=== PATIENT | female | born 1990 | race Caucasian/White ===

== ENCOUNTER 2023-12-19 10:39 | Emergency (ER) | payer OTHER, SELFPAY ==
[2023-12-19 10:47] VITALS: BP 152/90
--- NOTE | 2023-12-19 11:18 | ED.GENMED ---
History of Present Illness
General
Chief Complaint: Substance Abuse
Time Seen by Provider: 12/19/23 11:04
Travel History
Have you had any contact with someone who has COVID-19?: No
Do you have any symptoms of coronavirus? Fever > 100 degrees, chills, cough, shortness of breath, sore throat, loss of taste or smell, muscle aches, or headache?: No
History of Present Illness
History of Present Illness:
33-year-old female with history of polysubstance abuse, PTSD, and depression presents to the emergency department for eval ration of recurrent substance abuse. She states to be 'I feel like my head is clouded' and she has been using alcohol as well
as marijuana and Adderall habitually over the past several weeks. Her last use of these substances was yesterday. She does endorse depression but denies suicidal or homicidal ideation. She is hopeful to go inpatient for drug detox and rehab.
Review of Systems
Review of Systems
Allergies reviewed?: Yes
All Other Systems: ROS reviewed and negative except as documented in HPI and ROS
Phy Exam
Physical Exam
Physical Exam:
GEN: Well appearing, NAD, WDWN
HEENT: Oral mucosa moist, no scleral icterus
Cardiac: Regular rate
Lung: No respiratory distress, no tachypnea
MSK: No gross deformity or injuries
Skin: Good color, no pallor or jaundice, no rashes
Neuro: AO x3, moves all extremities freely
Psych: Tearful and anxious but overall cooperative, nonpsychotic, does not appear to be responding to internal stimuli
Course
Orders/Labs/Results
Orders:
Orders
12/19/23 11:17
Crisis Consult Urgent
Reason for Consult: depression, substance abuse
12/19/23 15:37
Test Result ONCE
12/19/23 16:13
Fentanyl, Urine Urgent
HCG, Urine Qualitative Screen Urgent
Date Specimen was Collected: 12/19/23
Time Specimen was Collected: 16:13
Urine Drug Abuse Screen Urgent
Date Specimen was Collected: 12/19/23
Time Specimen was Collected: 16:13
12/19/23 21:13
Asenapine Sublingual [Saphris] 5 mg SL NOW STA
12/20/23 11:29
Crisis Consult Routine
Reason for Consult: hallucinations
12/20/23 12:09
Add On- LAB Urgent
Tests Added?: urine drug screen
Abnormal Lab Results
12/19/23
16:13
Ur Amphetamines Screen Positive H
(Negative)
U Marijuana (THC) Screen Positive H
(Negative)
Vital Signs
Initial and Last Documented VS:
Initial Vital Signs
Temp Pulse Resp BP Pulse Ox
98.0 F 97 16 152/90 98
12/19/23 10:47 12/19/23 10:47 12/19/23 10:47 12/19/23 10:47 12/19/23 10:47
Last Documented Vital Signs
Temp Pulse Resp BP Pulse Ox
97.8 F 73 18 121/83 97
12/20/23 07:09 12/20/23 07:08 12/20/23 07:08 12/20/23 07:08 12/20/23 07:08
MDM/Problems Addressed
MDM/Problems Addressed:
[facility], she is more appropriate for substance abuse rehab and does not have any inpatient crisis needs at this time. Will be placed in a inpatient substance abuse facility at the direction of [facility]
*Critical Care Note
Total Time (30-74mins, 75-104mins- exclusive of procedures): Not Applicable
Update Note
Update Note:
12/20/2023 1303 PM: There was a delay in transfer the patient to the outside rehab facility as she apparently had reported some visual hallucinations and auditory hallucinations yesterday while in the emergency department. The patient states these
are currently resolved. Reevaluated by crisis, I am in agreement that there are no immediate safety concerns. She has no suicidal or homicidal ideation and no active hallucinations. She is medically suitable to be discharged from the ER to
inpatient drug and alcohol rehab facility
ED Attending Note
-
Portions of this chart may have been created with voice recognition software.� Occasional wrong word or��sound alike� substitutions may have occurred due to the inherent limitations of voice recognition software.
Discharge Plan
Departure
Patient Disposition: Home (Routine Discharge)
Date of Disposition: 12/19/23
Time of Disposition: 14:41
Patient with high blood pressure during this ER visit?: No
Discharge Problem:
Polysubstance abuse, Depression
Instructions: Polysubstance Use Disorder (DC)
Referrals:
UNKNOWN - PT DOES,NOT KNOW [Family Provider] -
Interventions
Interventions:
*Risk Screen - Suicide Last Done: 12/19/23 11:54
*Neglect/Abuse Screening Last Done: 12/19/23 11:54
ED- Fall Risk Assessment Last Done: 12/20/23 12:45
*ED COVID-19 Vaccine History Last Done: 12/19/23 10:47
ED-Psychological Assessment Last Done: 12/19/23 17:36
--- NOTE | 2023-12-19 16:12 | EDRN ---
I spoke with [facility] and the patient will be staying in the ED overnight, will be transferred to the [facility] in the morning after Evelyn from [facility] speaks with her and if the patient is not delusional she will be going to [facility].
[2023-12-19 16:30] LABS: HCG, Urine Qualitative Screen Negative
[2023-12-19 18:10] VITALS: BP 142/81
--- NOTE | 2023-12-19 19:00 | EDRN ---
Report received, introduced myself to patient and family at bedside, patient worried about sleeping, provided ear plugs and suggested calming music for patient
--- NOTE | 2023-12-19 21:00 | EDRN ---
Patient screaming, mom says she thinks she was sleeping having a night terror, Dr. torres aware, for now will just monitor, patient seems to of stopped if continues will give meds
--- NOTE | 2023-12-19 21:20 | EDRN ---
Patient seems still anxious and upset, medications to be given, family at bedside with patient
[2023-12-19] MEDS: SAPHRIS 5 MG SL (21:21)
--- NOTE | 2023-12-20 01:33 | EDRN ---
Patient resting comfortably with family at bedside
--- NOTE | 2023-12-20 04:56 | EDRN ---
Patient is sleeping at this time, call canales in reach, mom is at bedside with her as well.
[2023-12-20 07:07] VITALS: BMI 25.1
[2023-12-20 07:08] VITALS: BP 121/83
[2023-12-20 12:44] LABS: Amphetamines Positive (Negative)
[2023-12-20 12:45] LABS: Barbiturates Negative (Negative); Benzodiazepines Negative (Negative); Buprenorphine Negative (Negative); Cocaine Negative (Negative); Marijuana Positive (Negative); Methadone Negative (Negative); Methamphetamines Negative (Negative); Opiates Negative (Negative); Phencyclidine Negative (Negative); Tricyclic Antidepressants Negative (Negative)
[2023-12-20 13:59] LABS: Fentanyl, Urine Negative (Negative)
[2023-12-20 15:35] VITALS: BP 127/87
== END 2023-12-20 15:41 | disposition home or self-care (01) ==
LOC: EMR 10:39
PROVIDERS: EMERGENCY PHYSICIAN Emergency Medicine
DX: F19.10 Other psychoactive substance abuse, uncomplicated (principal); F32.A Depression, unspecified; R44.1 Visual hallucinations; R44.0 Auditory hallucinations; F10.90 Alcohol use, unspecified, uncomplicated; F12.90 Cannabis use, unspecified, uncomplicated; F43.10 Post-traumatic stress disorder, unspecified
CPT/HCPCS: 99285; 80306; 80307; 81025

== ENCOUNTER 2024-10-14 18:06 | Inpatient (IN) | payer OTHER, SELFPAY ==
--- NOTE | 2024-10-14 14:52 | ED.GENMED ---
ED Provider Triage
<Jorje Cheng PA-C - Last Filed: 10/14/24 14:55>
-
Patient seen by provider in Triage?: Seen in Triage
Attestation: A medical screening examination has been initiated by a qualified medical provider. Based on the assessment performed at this time, it has been determined that an emergent medical condition may exist and the patient has been informed
that further medical evaluation and possible additional diagnostic testing may be needed.
HPI: 3 days . Anxious. Stating does not feel well. Has not had sleep. No fevers/abdominal pain/urinary symptoms. Uncomplicated vaginal delivery. BP in triage 138/104. Labs ordered. Patient does appear very anxious. Labs and urine ordered.
Patient brought back to ED bed
GENERAL: Alert , in no apparent distress
EYE: No visual abnormalities.
NECK: Trachea midline
ENT: No visible abnormalities.
LUNGS: No acute respiratory distress
NEUROLOGICAL: Alert and oriented
SKIN: Skin intact. No visible changes.
MUSCULOSKELETAL: Moving extremities normally
PSYCH: Normal and appropriate interaction.
This is a medical evaluation conducted in person to initiate diagnostic evaluation and provide initial therapeutics. Please see further documentation by the treating clinician.
History of Present Illness
<Jorje Cheng PA-C - Last Filed: 10/14/24 14:55>
General
Chief Complaint: Problems
Time Seen by Provider: 10/14/24 16:37
<Naya Lancaster PA-C - Last Filed: 10/15/24 00:30>
General
Source: patient and family
Exam Limitations: none
Nursing documentation reviewed up to this point in time: agreed with
History of Present Illness
History of Present Illness:
34-year-old female G1, P1 delivered on 1-839 weeks and 4 days uncomplicated vaginal delivery with some elevated blood pressure readings and what the says was a small amount of protein in her urine. She was discharged on 1�10 on
Lasix 20 mg once a day. She has been breast-feeding and has not been sleeping which is probably added to her stress. Her says that she will close her eyes and he sees her flutter her eyelids or make funny faces with her mouth and twitching
movements. She also has been very overwhelmed and tearful and says she feels a little depressed because she is not sure how to do this. Patient denies suicidal thoughts. She has a good support system with her family and friends and has been.
She has not had any headache, vision changes, edema in her legs. Patient did take a dose of Lasix at 1 AM.
She has been taking her blood pressure readings and they were elevated 140s over 90s at home. She did not call her POCKET OPERATOR from [place] but came here because we are the closest hospital. Patient has 1 previous psych admission for a drug-induced
psychosis but she is no longer on any antipsychotics but has had depression and some substance abuse issues in the past
Past History
<Naya Lancaster PA-C - Last Filed: 10/15/24 00:30>
Past History
ED Past Medical History: Psychiatric
Social History
Tobacco: Non-smoker
Alcohol: None
Drug: Former user
Review of Systems
<Naya Lancaster PA-C - Last Filed: 10/15/24 00:30>
Review of Systems
Allergies reviewed?: Yes
All Other Systems: Not applicable
Phy Exam
<Naya Lancaster PA-C - Last Filed: 10/15/24 00:30>
Physical Exam
Physical Exam:
GENERAL: Alert , in no apparent distress
EYE: pupils equal and reactive
NECK: Supple
ENT: o/p clr, mmm.
CARDIAC: Regular rate and rhythm . No leg edema
LUNGS: Clear breath sounds bilaterally, no acute respiratory distress, no wheezes/rales/rhonchi
ABDOMEN: Soft, without focal tenderness, no r/g, no cvat, normal bowel sounds
NEUROLOGICAL: Alert and oriented, no focal neuro deficits
SKIN: Warm and dry, skin intact.
MUSCULOSKELETAL: No edema, well perfused. neg kei's sign
PSYCH: Tearful at times
Course
<Jorje Cheng PA-C - Last Filed: 10/14/24 14:55>
Orders/Labs/Results
Orders:
Orders
10/14/24 15:01
Complete Blood Count/With Diff Urgent
Comprehensive Metabolic Panel Urgent
Magnesium Urgent
10/14/24 15:02
Protein/Creat Ratio (Random) Urgent
Date Specimen was Collected: 10/14/24
Time Specimen was Collected: 15:02
Comment: ADD ON
Urinalysis Reflex To Culture Urgent
Date Specimen was Collected: 10/14/24
Time Specimen was Collected: 15:02
Urine Drug Abuse Screen Urgent
Date Specimen was Collected: 10/14/24
Time Specimen was Collected: 15:02
Urine Microscopic Reflex Cult Urgent
Urine Culture Urgent
NATA Source: U
Specimen Description:
Date Specimen was Collected: 10/14/24
Time Specimen was Collected: 15:02
10/14/24 17:03
Add On- LAB Urgent
Tests Added?: urine protein/cr ratio
Abnormal Lab Results
10/14/24 10/14/24
15:01 15:02
WBC 16.2 H 10^3/uL
(4.8-10.8)
RBC 4.17 L 10^6/uL
(4.20-5.40)
Hct 36.3 L %
(37.0-47.0)
Abs Immat Gran (auto) 0.1 H 10^3/uL
(0-0.05)
Absolute Neuts (auto) 13.1 H 10^3/uL
(1.4-6.5)
Absolute Monos (auto) 0.7 H 10^3/uL
(0.1-0.6)
Immature Gran % 0.7 H %
(0-0.5)
Neutrophils % 80.8 H %
(42.2-75.2)
Lymphocytes % 13.2 L %
(20.5-51.1)
Carbon Dioxide 20 L mmol/L
(22-30)
Glucose 118 H mg/dl
(70-99)
AST 106 H U/L
(14-36)
ALT 90 H U/L
(0-35)
Alkaline Phosphatase 201 H U/L
(38-126)
Ur Occult Blood Reflex 4+ A
(Negative)
Leukocyte Esterase Rfl 2+ A
(Negative)
Urine RBC 50-60 A /HPF
(0-2)
Urine WBC (Reflex) 26-30 A /HPF
(0-5)
Urine Bacteria (Reflex) Many A
(Negative)
10/14/24 15:01
10/14/24 15:01
Vital Signs
Initial and Last Documented VS:
Initial Vital Signs
Temp Pulse Resp BP Pulse Ox
36.8 C 120 16 138/104 98
10/14/24 14:54 10/14/24 14:54 10/14/24 14:54 10/14/24 14:54 10/14/24 14:54
Last Documented Vital Signs
Temp Pulse Resp BP Pulse Ox
36.4 C 84 18 155/94 97
10/14/24 18:16 10/14/24 18:16 10/14/24 18:16 10/14/24 18:16 10/14/24 17:31
Nathanlt;Naya Lancaster PA-C - Last Filed: 10/15/24 00:30>
Orders/Labs/Results
Orders:
Orders
10/14/24 15:01
Complete Blood Count/With Diff Urgent
Comprehensive Metabolic Panel Urgent
Magnesium Urgent
10/14/24 15:02
Protein/Creat Ratio (Random) Urgent
Date Specimen was Collected: 10/14/24
Time Specimen was Collected: 15:02
Comment: ADD ON
Urinalysis Reflex To Culture Urgent
Date Specimen was Collected: 10/14/24
Time Specimen was Collected: 15:02
Urine Drug Abuse Screen Urgent
Date Specimen was Collected: 10/14/24
Time Specimen was Collected: 15:02
Urine Microscopic Reflex Cult Urgent
Urine Culture Urgent
NATA Source: U
Specimen Description:
Date Specimen was Collected: 10/14/24
Time Specimen was Collected: 15:02
10/14/24 17:03
Add On- LAB Urgent
Tests Added?: urine protein/cr ratio
Abnormal Lab Results
10/14/24 10/14/24
15:01 15:02
WBC 16.2 H 10^3/uL
(4.8-10.8)
RBC 4.17 L 10^6/uL
(4.20-5.40)
Hct 36.3 L %
(37.0-47.0)
Abs Immat Gran (auto) 0.1 H 10^3/uL
(0-0.05)
Absolute Neuts (auto) 13.1 H 10^3/uL
(1.4-6.5)
Absolute Monos (auto) 0.7 H 10^3/uL
(0.1-0.6)
Immature Gran % 0.7 H %
(0-0.5)
Neutrophils % 80.8 H %
(42.2-75.2)
Lymphocytes % 13.2 L %
(20.5-51.1)
Carbon Dioxide 20 L mmol/L
(22-30)
Glucose 118 H mg/dl
(70-99)
AST 106 H U/L
(14-36)
ALT 90 H U/L
(0-35)
Alkaline Phosphatase 201 H U/L
(38-126)
Ur Occult Blood Reflex 4+ A
(Negative)
Leukocyte Esterase Rfl 2+ A
(Negative)
Urine RBC 50-60 A /HPF
(0-2)
Urine WBC (Reflex) 26-30 A /HPF
(0-5)
Urine Bacteria (Reflex) Many A
(Negative)
10/14/24 15:01
10/14/24 15:01
Vital Signs
Initial and Last Documented VS:
Initial Vital Signs
Temp Pulse Resp BP Pulse Ox
36.8 C 120 16 138/104 98
10/14/24 14:54 10/14/24 14:54 10/14/24 14:54 10/14/24 14:54 10/14/24 14:54
Last Documented Vital Signs
Temp Pulse Resp BP Pulse Ox
36.4 C 84 18 155/94 97
10/14/24 18:16 10/14/24 18:16 10/14/24 18:16 10/14/24 18:16 10/14/24 17:31
Information
Weeks gestation: Weeks:
Location: Location:
<Naya Lancaster PA-C - Last Filed: 10/15/24 00:30>
MDM/Problems Addressed
Differential Diagnosis Includes:
preeclampsia, anxiety, PPD
MDM/Problems Addressed:
34 y/o F
3 days post at [place]
uncmplicated delivery but post htn
on lasix 20 mg
but elevated readings ta home, not sleeping well, anxious, tearful, depressed
kurt here to nearest hospital
seems anxious
closes her eyes and flutters them frequently but is awake when she does it
admitted to feeling overwhelmed
has good support
but pt's BP 130s/90s with LFT that are elevated, plt [place]
d/w dr. montalvo from [facility]
recommends pt come upstairs for IV mag, preeclampsia treatment
<Naya Lancaster PA-C - Last Filed: 10/15/24 00:30>
*Critical Care Note
Total Time (30-74mins, 75-104mins- exclusive of procedures): Not Applicable
ED Attending Note
<Jorje Cheng PA-C - Last Filed: 10/14/24 14:55>
-
Portions of this chart may have been created with voice recognition software.� Occasional wrong word or��sound alike� substitutions may have occurred due to the inherent limitations of voice recognition software.
Discharge Plan
Departure
Patient Disposition: Home (Routine Discharge)
Date of Disposition: 10/14/24
Time of Disposition: 17:19
Patient with high blood pressure during this ER visit?: Yes
Condition: Fair
Discharge Problem:
Pre-eclampsia
Interventions
Interventions:
*Risk Screen - Suicide Last Done: 10/14/24 18:16
*General Assessment Last Done: 10/14/24 17:27
*Neglect/Abuse Screening Last Done: 10/14/24 14:54
*ED COVID-19 Vaccine History Last Done: 10/14/24 17:27
*Nursing Disposition Last Done: 10/14/24 18:07
ED-Female Genitourinary Assessment Last Done: 10/14/24 18:01
Discharge Date and Time
Discharge Date/Time: 10/14/24 18:08
[2024-10-14 14:54] VITALS: BP 138/104
[2024-10-14 15:10] LABS: % Basophils 0.6 % (0-2); % Eosinophils 0.6 % (0-6); % Immature Granulocytes 0.7 % (0-0.5); % Lymphocytes 13.2 % (20.5-51.1); % Monocytes 4.1 % (1.7-9.3); % Neutrophils 80.8 % (42.2-75.2); Absolute Basophils 0.1 10^3/uL (0-0.2); Absolute Eosinophils 0.1 10^3/uL (0-0.7); Absolute Immature Granulocytes 0.1 10^3/uL (0-0.05); Absolute Lymphocytes 2.1 10^3/uL (1.2-3.4); Absolute Monocytes 0.7 10^3/uL (0.1-0.6); Absolute Neutrophils 13.1 10^3/uL (1.4-6.5); Hematocrit 36.3 % (37.0-47.0); Hemoglobin 12.6 g/dL (12.0-16.0); Mean Corp Hgb Conc. 34.7 g/dL (33.0-37.0); Mean Corpuscular Hgb 30.2 pg (27.0-31.0); Mean Corpuscular Volume 87.1 fL (81.0-99.0); Nucleated Red Blood Cells % 0 %; Platelet Count 378 10^3/uL (130-400); Red Blood Cell Count 4.17 10^6/uL (4.20-5.40); Red Cell Dist. Width 13.2 % (11.5-14.5); White Blood Cell Count 16.2 10^3/uL (4.8-10.8)
[2024-10-14 15:13] LABS: Urine Albumin Trace (Neg - Trace); Urine Bilirubin Negative (Negative); Urine Character Clear (Clear); Urine Color Yellow; Urine Glucose Negative (Negative); Urine Ketone Negative (Negative); Urine Leukocyte 2+ (Negative); Urine Nitrite Negative (Negative); Urine Occult Blood 4+ (Negative); Urine Urobilinogen Negative (Neg - 1+)
[2024-10-14 15:34] LABS: ALT (SGPT) 90 U/L (0-35); AST (SGOT) 106 U/L (14-36); Albumin 4.1 g/dl (3.5-5.0); Alkaline Phosphatase 201 U/L (38-126); Blood Urea Nitrogen 17 mg/dl (7-17); Calcium 9.5 mg/dl (8.4-10.2); Carbon Dioxide 20 mmol/L (22-30); Chloride 102 mmol/L (98-107); Glucose 118 mg/dl (70-99); Magnesium 2.1 mg/dl (1.6-2.3); Sodium 136 mmol/L (135-145); Total Bilirubin 0.3 mg/dl (0.2-1.3); Total Protein 7.2 g/dl (6.3-8.2); eGFR > 60.00
[2024-10-14 15:34] LABS: Urine Squamous Cell 26-30 /LPF (Few)
[2024-10-14 15:35] LABS: Urine Red Blood Cell 50-60 /HPF (0-2); Urine White Cell 26-30 /HPF (0-5)
[2024-10-14 15:36] LABS: Urine Bacteria Many (Negative); Urine Urothelial Cell 0-2 /LPF (FEW)
[2024-10-14 16:04] VITALS: BP 137/103
[2024-10-14 16:52] VITALS: BP 130/94
[2024-10-14 17:00] VITALS: BP 137/99
[2024-10-14 17:31] LABS: Protein/creatinine Ratio 0.1; Urine Protein 15 mg/dl
[2024-10-14 18:16] VITALS: BP 155/94; BMI 28.9
[2024-10-14] MEDS: LR 1000 IV (18:29)
[2024-10-14] MEDS: MAGNESIUM SULFATE 100 IV (18:31)
[2024-10-14 18:40] LABS: Amphetamines Negative (Negative); Barbiturates Negative (Negative); Benzodiazepines Negative (Negative); Buprenorphine Negative (Negative); Cocaine Negative (Negative); Marijuana Negative (Negative); Methadone Negative (Negative); Methamphetamines Negative (Negative); Opiates Negative (Negative); Phencyclidine Negative (Negative); Tricyclic Antidepressants Negative (Negative)
[2024-10-14] MEDS: MAGNESIUM SULFATE 40 GRAM 1000 IV (18:49)
[2024-10-14] MEDS: NSS (PRESERVATIVE FREE) 0.25 ML IV (21:25)
[2024-10-14] MEDS: ATIVAN 0.5 MG IV (21:26)
[2024-10-15] MEDS: ATIVAN 0.5 MG IV ×2 (01:42→10:38)
[2024-10-15] MEDS: FLUSH (NSS) 1 FLUSH IV (01:43)
[2024-10-15] MEDS: MOTRIN 600 MG PO (04:04)
[2024-10-15] MEDS: LR 1000 IV (06:07)
[2024-10-15] MEDS: TYLENOL 650 MG PO ×2 (07:18→14:09)
[2024-10-15] MEDS: PRENATAL PLUS 1 TABLET PO (08:30)
[2024-10-15 10:55] LABS: ALT (SGPT) 129 U/L (0-35); AST (SGOT) 125 U/L (14-36); Magnesium 5.7 mg/dl (1.6-2.3)
[2024-10-15 11:21] LABS: TSH 0.73 uIU/ml (0.47-4.68)
[2024-10-15] MEDS: MAGNESIUM SULFATE 40 GRAM 1000 IV (12:19)
--- NOTE | 2024-10-15 12:20 | W.PN.UPDATE ---
Update Note
Progress Note Update
Psychiatric Evaluation dictated.
Patient reports significant anxiety and insomnia having not slept 7 days. She was startled when I woke her but calded down quickly. Patient reports anxiety since her teenage years. Was tried on different psychotropic medications including Seroquel,
Adderall, Zyprexa, Xanax as well as Adderall for insomnia. Currently sees a therapist and still takes 50 mg of Trazodone at hs on prn basis and states it does help.
She has has fleeting suicidal thoughts for many years but only a thought but without intention of acting on it; denies suicidal thoughts or plan currently.
At this point I would try the Trazodone 25 mg hs for the insomnia; it does not affect the infant at such a low dose. We can still use the 0.5 mg of Ativan on prn basis. I also discussed different relaxation techniques.
Patient does see a therapist so she does have F/U.
[2024-10-15 12:23] LABS: % Basophils 0.6 % (0-2); % Eosinophils 1.5 % (0-6); % Lymphocytes 12.7 % (20.5-51.1); % Monocytes 5.2 % (1.7-9.3); Absolute Basophils 0.1 10^3/uL (0-0.2); Absolute Eosinophils 0.2 10^3/uL (0-0.7); Absolute Immature Granulocytes 0.1 10^3/uL (0-0.05); Absolute Lymphocytes 1.5 10^3/uL (1.2-3.4); Absolute Monocytes 0.6 10^3/uL (0.1-0.6); Absolute Neutrophils 9.1 10^3/uL (1.4-6.5); Hematocrit 36.6 % (37.0-47.0); Hemoglobin 12.2 g/dL (12.0-16.0); Mean Corp Hgb Conc. 33.3 g/dL (33.0-37.0); Mean Corpuscular Hgb 30.2 pg (27.0-31.0); Mean Corpuscular Volume 90.6 fL (81.0-99.0); Mean Platelet Volume 8.9 fL (7.4-10.4); Nucleated Red Blood Cells % 0 %; Platelet Count 374 10^3/uL (130-400); Red Blood Cell Count 4.04 10^6/uL (4.20-5.40); Red Cell Dist. Width 13.3 % (11.5-14.5); White Blood Cell Count 11.5 10^3/uL (4.8-10.8)
[2024-10-15] MEDS: COLACE 100 MG PO (14:40)
--- NOTE | 2024-10-15 16:15 | CM ---
production support manager received a call from nursing expressing concerns that some of patient's behaviors yesterday and overnight may warrant an evaluation from [facility]. Patient has recently given at [facility] approx 4 days ago.
Patient was evaluated by psychiatry at [facility] and they made some recommendations for patient to follow up after discharge. Patient's mother is currently caring for new born, patient has significant other/spouse also assist with care for
baby.
production support manager reached out to [facility] [phone] and spoke with Jonathan Flower who took all information on patient and to follow up with case.
Plan: Patient is for possible discharge tomorrow.
[2024-10-15] MEDS: ATIVAN 1 MG PO (16:20)
[2024-10-15] MEDS: DESYREL 25 MG PO (22:50)
[2024-10-15] MEDS: ATIVAN 0.5 MG PO (22:50)
[2024-10-16] MEDS: LR IV (05:06)
[2024-10-16] MEDS: ATIVAN 0.5 MG PO (05:37)
[2024-10-16] MEDS: ATIVAN 1 MG PO ×2 (08:36→20:10)
[2024-10-16] MEDS: PRENATAL PLUS 1 TABLET PO (08:36)
[2024-10-16 09:49] LABS: ALT (SGPT) 106 U/L (0-35); AST (SGOT) 59 U/L (14-36); Albumin 3.8 g/dl (3.5-5.0); Alkaline Phosphatase 186 U/L (38-126); Blood Urea Nitrogen 11 mg/dl (7-17); Calcium 8.2 mg/dl (8.4-10.2); Carbon Dioxide 21 mmol/L (22-30); Chloride 105 mmol/L (98-107); Estimated Creatinine Clearance > 125 ml/min; Glucose 91 mg/dl (70-99); Potassium 4.4 mmol/L (3.5-5.1); Sodium 136 mmol/L (135-145); Total Bilirubin 0.3 mg/dl (0.2-1.3); Total Protein 6.5 g/dl (6.3-8.2); eGFR > 60.00
--- NOTE | 2024-10-16 12:50 | CM ---
Addendum entered by Bandwagonerty 10/16/24 16:20:
Received call from [facility] top case assembler Evonne
Per Evonne - pt may be discharged to home when medically ready
campaign worker will contact pt/family after discharge to complete assessment and provide services as indicated
SATISH Leigh notified and aware
Plan - Pt may be discharged to home when medically ready - [facility] will follow to provide support/services as indicated
Addendum entered by Janice Jackelyn 10/16/24 16:03:
Called [facility] top case assembler Evonne Lim - LM requesting return call to discuss case
Addendum entered by Bandwagonerty 10/16/24 14:37:
Called [facility] - spoke with Mechelle
Tire Technician assigned to case is Evonne Perez - [phone]
Called and LM on requesting return call regarding this family
Awaiting call - PP SATISH Leigh made aware
Original Note:
Met with pt at bedside to complete IA
Pt reports she lives with her '' or 'significant other' AJ and now daughter Juana 'LADONNA' Ingris in a 1 fl condo; 12 steps to enter
Pt was admitted on PP day #3 - increased BP, anxiety and insomnia. Was on Magnesium Sulfate - d/c 'ed yesterday per pts SATISH Leigh
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 H/O anxiety/insomnia
Seen by psychiatry - recs follow up with her therapist and medication changes noted
delivered on 10/11/2024 - at [facility]
Pt reports she has support from FOB, her mother and other family/friends
Has all supplies for including breast pump
Tox screen on admission - negative
PCP - Katy Lemus at [facility]
Pharm - [facility] in [place]
Therapist - Jazmyn Moore at [facility]
Called [facility] [phone] to follow up on report made on 10/15 regarding pts behavior and concern for
LM on VM requesting return call
--- NOTE | 2024-10-16 15:16 | W.PN.UPDATE ---
Update Note
Progress Note Update
Pt seen with significant other present, pt holding her baby. Pt alert, oriented, calm, cooperative, with good eye contact, appropriate affect. Speech and thought are coherent/clear/goal-directed, with no signs of psychosis. Pt denies any
suicidal or homicidal ideation. Pt reports she slept last night, took Trazodone 25 mg. Reviewed risks/benefits of Trazodone, safety in . Pt appears to understand the information given. Pt was reportedly sleep-deprived after
delivering her baby. Pt has the support of her mother and significant other. She has a virtual appointment later this afternoon with her therapist of 5- 6 years.
Imp: Unspecified anxiety, likely due to sleep deprivation, resolving
Rec: Pt appears psychiatrically stable to return home with her
Would continue Trazodone 25 mg HS prn insomnia (very low amounts enter breast milk per the literature); continue Outpatient therapy
[2024-10-16] MEDS: TRANDATE 200 MG PO ×2 (15:48→20:06)
[2024-10-17] MEDS: DESYREL 25 MG PO (00:03)
[2024-10-17] MEDS: ATIVAN 0.5 MG PO (08:42)
[2024-10-17] MEDS: PRENATAL PLUS 1 TABLET PO (08:42)
[2024-10-17] MEDS: TRANDATE 200 MG PO (08:42)
== END 2024-10-17 11:46 | disposition home or self-care (01) | DRG 776 ==
LOC: LDRP 18:06
PROVIDERS: Physician Assistant Medical; Student in an Organized Health Care Education/Training Program; ADMITTING PHYSICIAN Obstetrics & Gynecology; EMERGENCY PHYSICIAN Emergency Medicine; OTHER PHYSICIAN Psychiatry & Neurology Psychiatry
DX: O14.95 Unspecified pre-eclampsia, complicating the puerperium (principal); O99.345 Other mental disorders complicating the puerperium; O90.89 Other complications of the puerperium, not elsewhere classified; F41.1 Generalized anxiety disorder; F43.10 Post-traumatic stress disorder, unspecified; G47.00 Insomnia, unspecified
CPT/HCPCS: 80053; 80306; 81003; 81015; 82570; 83735; 84156; 84443; 84450; 84460; 85025; 87086; 99283